=== PATIENT | female | born 1975 | race Caucasian/White ===

== ENCOUNTER → 2017-06-09 | Outpatient (CLI) | payer OTHER ==
[~2017-06-09] MED LIST: AMOXICILLIN500 MG PO; CIPROFLOXACIN500 MG PO; ELAVIL100 MG PO; FLEXERIL10 MG PO; FLEXERIL5 MG PO; HYDROCODONE BIT1 T11 PO; KEFLEX500 MG PO; KLONOPIN0.5 MG PO; METRONIDAZOLE500 MG PO; MOTRIN600 MG PO; MOTRIN800 MG PO; Motrin,Rufen800 MG PO; NEURONTIN800 MG PO; NORCO 325 MG-7.1 TAB PO; PEN-VEE K500 MG PO; PERCOCET 325 MG1 TA5 PO; PREDNICOT20 MG PO; PREDNISONE20 MG PO; REXULTI0.5 MG PO; SEPTRA DS 800 M1 TAB PO; TOPAMAX50 MG PO; TORADOL10 MG PO; TRAMADOL HCL50 MG PO; TRAZADONE HYDR100 MG PO; ULTRAM50 MG PO; VICO75300 PO; VICODIN 500 MG-1 TAB PO; VICODIN ES 7501 TAB PO; Vicodin 5/500 505 MG PO; WELLBUTRIN SR150 MG PO; XANAX2 MG PO; ZOLOFT100 MG PO
[2017-06-09 11:41] LABS: BASO # 0.1 10*3/uL (0.0-0.1); BASO % 0.7 % (0.0-1.0); EOS # 0.2 10*3/uL (0.0-0.4); EOS % 3.5 % (1.0-4.0); HEMATOCRIT 38.9 % (37.0-47.0); HEMOGLOBIN 12.9 g/dl (12.0-16.0); LYMPH # 2.3 10*3/uL (1.3-4.4); LYMPH % 34.1 % (27.0-41.0); MEAN CELL VOLUME 94.2 fl (81.0-99.0); MEAN CORPUSCULAR HGB 31.2 pg (27.0-31.0); MEAN CORPUSCULAR HGB CONC 33.2 g/dl (33.0-37.0); MONO # 0.5 10*3/uL (0.1-1.0); MONO % 6.8 % (3.0-9.0); NEUT # 3.7 10*3/uL (2.3-7.9); NEUT % 54.5 % (47.0-73.0); PLATELET COUNT AUTOMATED 191 10*3/uL (130-400); RED BLOOD COUNT 4.13 10*6/uL (4.10-5.10); RED CELL DISTRI WIDTH 12.5 % (0-14.5); WHITE BLOOD COUNT 6.8 10*3/uL (4.8-10.8)
[2017-06-09 12:14] LABS: ALBUMIN 3.9 gm/dl (3.1-4.5); BUN 9 mg/dl (7-24); CHLORIDE 104 mmol/L (98-107); POTASSIUM 4.3 mmol/L (3.5-5.1); SGPT/ALT 16 U/L (12-78); SODIUM 138 mmol/L (136-145)
[2017-06-09 12:24] LABS: ALKALINE PHOSPHATASE 46 U/L (45-117); CHOLESTEROL 227 mg/dL (<200); HDL CHOLESTEROL 57 mg/dl (40-60); LDL CHOLESTEROL 116 mg/dL (9-159); SGOT/AST 7 IU/L (3-35); TOTAL PROTEIN 7.3 gm/dL (6.4-8.2); TRIGLYCERIDES 269 mg/dl (<150); VLDL CHOLESTEROL 54 mg/dL (6-40)
[2017-06-10 08:12] LABS: RHEUMATOID ARTHRITIS FACTOR <10.0 IU/mL (0.0-13.9)
[2017-06-10 11:05] LABS: ANA DIRECT Negative (Negative)
[2017-06-10 22:06] LABS: CCP ANTIBODIES IGG/IGA 5 units (0-19)
== END | disposition home or self-care (01) ==
LOC: LAB 09:30
PROVIDERS: Obstetrics & Gynecology
DX: Z30.09 Encounter for other general counseling and advice on contraception (principal); M05.79 Rheumatoid arthritis with rheumatoid factor of multiple sites without organ or systems involvement; E66.09 Other obesity due to excess calories; N39.3 Stress incontinence (female) (male); N81.11 Cystocele, midline; R20.0 Anesthesia of skin; R20.2 Paresthesia of skin

== ENCOUNTER → 2017-06-16 | Day surgery (SDC) | payer OTHER ==
[2017-06-16] VITALS (16 sets, daily range): BP systolic 94–114; BP diastolic 54–78
[~2017-06-16] VITALS: Ht 154.9 cm; Wt 81.6 kg
[~2017-06-16] MED LIST changes: +PERCOCET 5-3251 EACH PO
--- NOTE | ~2017-06-16 | WRIGHTHP ---
[place], [place] PATIENT HISTORY AND PHYSICAL EXAM NAME: LARON CRONIN [facility] #: [id number] UNIT #: [id number] ROOM: DOCTOR: CONSTANTINE TORRES MD BIRTHDATE: [birth year] DOS: 06/16/2017 DATE OF SURGERY: 06/16/2017 HISTORY OF PRESENT ILLNESS: This patient is a very pleasant 42-year-old white female who is a 1, para 1, AB 0, whose last menstrual period was 05/23/2017, whose last negative Pap 10/30/2015 who presented on June 28, then again October 28 and then finally 04/30/2017 in regard to preop evaluation for stress urinary incontinence and a desire fertility termination. The patient and I had discussed her stress urinary incontinence history on 2 previous occasions as well as on 04/30/2017. She states that this is become progressively worse with stress urine incontinence, not only with intercourse, but also with daily activities. She also barrel races and has significant stress incontinence with this activity and would like to have this resolved. She also had mentioned she desire a tubal ligation for fertility termination. We reviewed the risks and benefits, indications, potential complications and alternatives as we had in the past for laparoscopic bilateral salpingectomy per recent ACOG recommendations and for an anterior repair, suprapubic TVT and cystoscopy, understanding stated and she did sign a consent for this surgery and has been scheduled for 05/17/2017. PAST MEDICAL HISTORY: Reveals a history of lumbar radiculopathy and herniated disk, classic myofascial strain, rheumatoid rhinitis, history of cellulitis in the left arm, chronic back pain, DJD, spinal stenosis, history of cervical dysplasia in 1997 and finally a history of heroin abuse, which she has now been clean for quite a number of years. SOCIAL HISTORY: She does smoke 1 to 1-1/2 packs per day. She does not use any illicit drugs, does not drink. ALLERGIES: She has no known allergies. MEDICATIONS: She does have a history of a number of medications including Mobic 15 mg once a day for discomfort, Wellbutrin 75 mg b.i.d. for various psychologic issues, gabapentin 800 mg t.i.d. for various pain components noted above. The patient has had 1 and 1 vaginal delivery as mentioned above. SURGICAL HISTORY: Included conization of the cervix with cervical dysplasia, cellulitis, left forearm I and D, cholecystectomy and left breast implant on 06/09/2016. REVIEW OF SYSTEMS: Stable. FAMILY HISTORY: Reveals a mother with diabetes and maternal aunt with breast cancer. PHYSICAL EXAMINATION: GENERAL: Reveals a pleasant white female. She is 5 feet, 186 pounds, BMI is 35.1. VITAL SIGNS: Blood pressure 128/80, oxygen sat 99% and she reveals no history [place], [place] PATIENT HISTORY AND PHYSICAL EX[facility]: [id number] UN[facility] #: [id number] ROOM: DOCTOR: CONSTANTINE TORRES MD BIRTHDATE: [birth year] of sleep apnea. HEENT: Grossly intact. NECK: Grossly intact. LUNGS: Grossly intact. CARDIAC: Grossly intact. BREASTS: Grossly intact. ABDOMEN: Grossly intact. EXTREMITIES: Grossly intact. NEUROLOGIC: Grossly intact. GENITOURINARY: External genitalia, vagina and cervix normal. Cervix is without significant since this i.e., no uterine descensus, but she does have a first-degree cystocele and rather significant urethral mobility. As I said uterine exam was normal, the adnexal exam was negative. RECTAL: Also negative. Hematest negative. ASSESSMENT AND PLAN: The patient who has stress urinary incontinence, worsening midline cystocele first degree and desire fertility termination. To that end, on 06/16/2017, the patient will undergo a laparoscopic bilateral salpingectomy as well as an anterior repair, suprapubic TVT and cystoscopy. CONSTANTINE TORRES MD CM:HISPHYS:PATIENT HISTORY AND PHYSICAL EXAMINATION [id number] CONSTANTINE TORRES MD 06/12/17 0612 interface
--- NOTE | ~2017-06-16 | O ---
[place], [place] OPERATIVE NOTE [id number] UN[facility] #: [id number] ROOM: DOCTOR: JONAS TORRES MD BIRTHDATE: [birth year] DOS: 06/16/2017 PRIMARY CARE PHYSICIAN: Dr. Bernabe. PREOPERATIVE DIAGNOSES: Desires fertility termination, worsening stress incontinence and first degree cystocele. POSTOPERATIVE DIAGNOSES: Desires fertility termination, worsening stress incontinence and first degree cystocele, with the addition of mild endometriosis of the pelvis. PROCEDURE: Laparoscopic bilateral salpingectomy, ablation of endometriosis implants, anterior repair, suprapubic TVT and cystoscopy. SURGEONS: Dr. Jonas Torres and Dr. San. ANESTHESIA: General. ESTIMATED BLOOD LOSS: 150 mL REPLACEMENTS: IV fluids, Ofirmev, Ancef and Toradol. COMPLICATIONS: There were no complications. The patient's condition to recovery stable. OPERATIVE SUMMARY: The patient was taken to the operating room in supine position, general anesthesia, endotracheal intubation, lithotomy position, prepped and draped in routine manner. Noriega catheter was placed to straight drain. The cervix was visualized, grasped with a tenaculum and a cervical manipulator placed. Infraumbilical, suprapubic and right lower quadrant incisions were then made. Through the infraumbilical incision, we placed a 5 mm trocar sleeve and laparoscope and insufflated with CO2. We placed an 8 mm trocar and sleeve through the suprapubic incision and a 5 mm trocar and sleeve through the right lower quadrant incision. We evaluated the pelvis and we noted that the uterus was slightly retroverted, retroflexed, rather soft and boggy, but otherwise normal in size, configuration, and mobility. The anterior cul-de-sac was clean. The posterior cul-de-sac had several active endometriosis implants and some scarring from previous endometriosis. There was endometriosis in the left fallopian tube, left anterior surface of the broad ligament and on the left cornual region of the uterus. The right tube and ovary and the left tube and ovary otherwise were normal. Appendix was visualized and normal in its entirety. There were numerous adhesions in the mid and right upper quadrant from a previous cholecystectomy. There were no other atypicalities noted. We ablated all endometriosis implants and then we performed a bilateral salpingectomy without issue. Noting good hemostasis, noting that her ureters appeared to be intact and peristalsing normally, we removed the 2 lower abdominal ports and noting no excessive anterior abdominal bleeding, CO2 was allowed to escape, followed by removal of the infraumbilical trocar sleeve and laparoscope. All incisions were closed with subcuticular 3-0 Monocryl suture. Steri-Strips and dressings placed. We turned our attention vaginally where the [place], [place] OPERATIVE NOTE [facility]: [id number] UNIT #: [id number] ROOM: DOCTOR: JONAS TORRES MD BIRTHDATE: [birth year] patient was repositioned. The anterior vagina was visualized. The prominent first degree cystocele noted. We then made a transverse incision above the cervix and then made an incision perpendicular to this in the anterior vagina up to just inferior to the urethral meatus and this incision was in the midline as well. The vaginal mucosa was dissected free from the vesicovaginal fascia and the bladder itself. We dissected bilaterally into the retropubic area and then through 2 small suprapubic incisions placed our TVT introducers. Once this was completed, we performed a thorough cystoscopy and in the room concurred that there was no evidence of foreign body within the bladder and the bladder otherwise was normal. We then placed our TVT tape without tension and I was very careful to adjust this using a Capri. Once this was completed, we repaired the cystocele with several layers of interrupted 2-0 Vicryl suture. We trimmed off excess anterior vaginal mucosa and closed the anterior vaginal incision with a running locking 2-0 Vicryl suture. Noting good hemostasis, we trimmed off our suprapubic TVT tape sites and then closed those incisions with 3-0 Monocryl suture with a single subcuticular suture bilaterally. Dressings were placed in this area. The patient was cleaned off after we had placed Premarin cream within the vagina as well as 2 inch iodoform packing. She was further cleaned off, taken out of lithotomy position, awakened, extubated, and transferred to recovery in satisfactory condition with stable vital signs, good hemostasis, stable sponge and instrument count, and clear and adequate urine output. JONAS TORRES MD CM:OPRECORD:OPERATIVE NOTE [id number] JONAS TORRES MD 06/16/17 1216 interface
== END | disposition home or self-care (01) ==
LOC: SDC 06-09 09:30
DX: Z30.2 Encounter for sterilization (principal); N39.3 Stress incontinence (female) (male); N81.10 Cystocele, unspecified; N80.8 Other endometriosis; J45.909 Unspecified asthma, uncomplicated; F41.9 Anxiety disorder, unspecified; F32.9 Major depressive disorder, single episode, unspecified; F17.210 Nicotine dependence, cigarettes, uncomplicated; Z79.899 Other long term (current) drug therapy; M54.5 Low back pain; G89.29 Other chronic pain; Z82.49 Family history of ischemic heart disease and other diseases of the circulatory system

== ENCOUNTER 2017-06-20 12:08 | Emergency (ER) | payer OTHER ==
[~2017-06-20] VITALS: Ht 154.9 cm; Wt 79.4 kg
[2017-06-20 12:48] LABS: BASO % 0.1 % (0.0-1.0); EOS # 0.4 10*3/uL (0.0-0.4); EOS % 4.8 % (1.0-4.0); HEMOGLOBIN 11.1 g/dl (12.0-16.0); LYMPH % 26.8 % (27.0-41.0); MEAN CELL VOLUME 91.9 fl (81.0-99.0); MEAN CORPUSCULAR HGB 30.9 pg (27.0-31.0); MEAN CORPUSCULAR HGB CONC 33.6 g/dl (33.0-37.0); MEAN PLATELET VOLUME 9.6 fl (9.6-12.3); MONO # 0.5 10*3/uL (0.1-1.0); MONO % 6.8 % (3.0-9.0); NEUT # 4.5 10*3/uL (2.3-7.9); NEUT % 61.2 % (47.0-73.0); PLATELET COUNT AUTOMATED 215 10*3/uL (130-400); RED BLOOD COUNT 3.59 10*6/uL (4.10-5.10); RED CELL DISTRI WIDTH 12.3 % (0-14.5); WHITE BLOOD COUNT 7.4 10*3/uL (4.8-10.8)
[2017-06-20 12:54] LABS: BILIRUBIN NEGATIVE (NEGATIVE); BLOOD 3+ (NEGATIVE); CLARITY CLOUDY (CLEAR); COLOR YELLOW (YELLOW); GLUCOSE NEGATIVE (NEGATIVE); KETONE NEGATIVE (NEGATIVE); LEUKO ESTERASE 2+ (NEGATIVE); NITRITE NEGATIVE (NEGATIVE); SPECIFIC GRAVITY 1.015 (1.005-1.030); UROBILINOGEN 0.2 E.U./dl (0.2-1.0)
[2017-06-20 13:02] LABS: ALBUMIN 3.5 gm/dl (3.1-4.5); ALKALINE PHOSPHATASE 48 U/L (45-117); BUN 14 mg/dl (7-24); CHLORIDE 108 mmol/L (98-107); CREATININE 0.98 mg/dL (0.55-1.02); SGOT/AST 6 IU/L (3-35); SGPT/ALT 23 U/L (12-78); SODIUM 140 mmol/L (136-145); TOTAL PROTEIN 6.7 gm/dL (6.4-8.2)
[2017-06-20 13:13] LABS: BACTERIA 3+; WBC 41-50 wbc/hpf (0-5)
[2017-06-20] MEDS ORDERED: PYRIDIUM200 M1 PO (13:53)
[2017-06-20] MEDS ORDERED: Bactrim DS PO (13:53)
[2017-06-20] MEDS ORDERED: ZOFRAN4 MG PO (13:53)
== END 2017-06-20 14:38 | disposition home or self-care (01) ==
LOC: ED 12:08
PROVIDERS: Nurse Practitioner Family
DX: N39.0 Urinary tract infection, site not specified (principal); G89.18 Other acute postprocedural pain; F17.200 Nicotine dependence, unspecified, uncomplicated; Z79.899 Other long term (current) drug therapy

== ENCOUNTER → 2017-08-08 | Outpatient (CLI) | payer OTHER ==
[~2017-08-08] MED LIST changes: +Bactrim DS PO; +PYRIDIUM200 M1 PO; +ZOFRAN4 MG PO
== END | disposition home or self-care (01) ==
LOC: RAD 09:57
DX: M54.5 Low back pain (principal); M54.6 Pain in thoracic spine; G89.29 Other chronic pain; G43.809 Other migraine, not intractable, without status migrainosus

== ENCOUNTER → 2017-09-19 | Outpatient (CLI) | payer OTHER | END | disposition home or self-care (01) | LOC: MRI 09-11 11:00 | DX: M47.896 Other spondylosis, lumbar region (principal); M54.41 Lumbago with sciatica, right side ==